=== PATIENT | female | born 1995 | race Caucasian/White ===

== ENCOUNTER 2019-01-17 15:43 | Inpatient (IN) ==
[2019-01-17] MEDS ORDERED: CALCIUM CARBONATE 500 MG (TUMS) CHEWABLE TABLET PO PRN (16:46)
[2019-01-17] MEDS ORDERED: ONDANSETRON 4 MG/2 ML VIAL IVP PRN (16:46)
[2019-01-17] MEDS ORDERED: LIDOCAINE W/ SODIUM BICARB 0.5 ML SYR SUBD PRN (16:46)
[2019-01-17] MEDS ORDERED: NALOXONE 0.4 MG/1 ML VIAL IVP PRN (16:46)
[2019-01-17] MEDS ORDERED: Metoclopramide Inj 10 MG/2 ML VIAL IV PRN (16:46)
[2019-01-17] MEDS ORDERED: CITRIC ACID/SODIUM CITRATE 30 ML CUP PO PRN (16:46)
[2019-01-17] MEDS ORDERED: Phenylephrine Inj 50 MCG in Sodium Chloride 0.9% vial 0.5 ML IVP PRN (16:46)
[2019-01-17] MEDS ORDERED: CefOXitin Inj 2 GM in Sodium Chloride 0.9% 100 ML IV PRN (16:46)
[2019-01-17] MEDS ORDERED: Lidocaine 1% 10 MG/ML - 20 ML VIAL SUBCUT PRN (16:46)
[2019-01-17] MEDS ORDERED: Carboprost Inj 250 MCG/ML AMP IM PRN (16:46)
[2019-01-17] MEDS ORDERED: FAMOTIDINE 20 MG/2 ML VIAL IVP PRN ×2 (16:46)
[2019-01-17] MEDS ORDERED: TERBUTALINE SULFATE 1 MG/1 ML SDV SUBCUT PRN (16:46)
[2019-01-17] MEDS ORDERED: fentaNYL Inj 100 MCG/2 ML VIAL IV PRN (16:46)
[2019-01-17] MEDS ORDERED: ePHEDrine Inj 50 MG/ML AMP IVP PRN (16:46)
[2019-01-17] MEDS ORDERED: LIDOCAINE HCL 2 % 10 ML JELLY URO-JECT TOPICAL PRN (16:46)
[2019-01-17] MEDS ORDERED: METHYLERGONOVINE MALEATE 0.2 MG/1 ML VIAL IM PRN (16:46)
[2019-01-17] MEDS ORDERED: Naloxone Inj 0.01 MG in Sodium Chloride 0.9% vial 1 ML IVP PRN (16:46)
[2019-01-17] MEDS ORDERED: Misoprostol Tab 100 MCG TAB VAGINAL PRN (16:46)
[2019-01-17] MEDS ORDERED: MISOPROSTOL 200 MCG TABLET RECTAL PRN (16:46)
[2019-01-17] MEDS ORDERED: diphenhydrAMINE 50 MG/1 ML VIAL IVP PRN (16:46)
[2019-01-17] MEDS ORDERED: BUTORPHANOL TARTRATE 2 MG/1 ML VIAL IVP PRN (16:46)
[2019-01-17] MEDS ORDERED: Zolpidem Tab 5 MG TAB PO PRN (16:46)
[2019-01-17] MEDS ORDERED: OXYTOCIN 10 UNIT/1 ML IM PRN (16:46)
[2019-01-17] MEDS ORDERED: Nalbuphine Inj 20 MG/ML Ampule IVP PRN (16:46)
[2019-01-17 16:56] LABS: Hematocrit [HCT] 36.4 % (37.0-47.0); Hemoglobin [HGB] 12.3 g/dL (12.0-16.0); MEAN CORPUSCULAR HEMOGLOBIN 29.1 PG (27-31); MEAN CORPUSCULAR HGB CONC 33.8 g/dL (33-37); MEAN CORPUSCULAR VOLUME 86.3 FL (81-99); MEAN PLATELET VOLUME 12.5 FL (7.4-12.2); RED BLOOD COUNT 4.22 10^6/uL (4.20-5.40)
[2019-01-17] MEDS ORDERED: Oxytocin 20 Units + LR 20 UNIT/1,000 ML BAG IV SCH (17:00)
[2019-01-17] MEDS: Lactated Ringers-OB Dept 1,000 ML PRIMARY IV SCH (17:13)
[2019-01-18] MEDS: Misoprostol Tab 100 MCG TAB VAGINAL PRN ×2 (00:14→04:13)
[2019-01-18] MEDS: Lactated Ringers-OB Dept 1,000 ML PRIMARY IV SCH ×2 (04:12→09:51)
[2019-01-18] MEDS ORDERED: Oxytocin 20 Units + LR 20 UNIT/1,000 ML BAG IV SCH ×2 (07:15→18:35)
[2019-01-18] MEDS: Oxytocin 20 Units + LR 20 UNIT/1,000 ML BAG IV SCH (07:22)
[2019-01-18] MEDS ORDERED: Lidocaine/Epi Inj 1.5% 5 ML AMPUL EPIDURAL ONE (08:49)
[2019-01-18] MEDS ORDERED: Fent/Bupiv 2mcg/0.0625% Epid 250 ML ONE (09:03)
--- NOTE | 2019-01-18 09:11 | CRNA.PROCE ---
Central Neuraxis Block Placemt - - Safety Measures: Time Out Taken, Site Verified - - Type of Block: Epidural Reason for Block: Analgesia Moniters Used During Block: SPO2, NIBP Skin Prep Used: ChloroPrep Draped: Yes Skin Infiltration - Enter Amount Used in Comment Field: 1% Xylocaine (mL): Yes (skinwheal) Spinal Needle Used: 18 Hustead 80 mm Local Anesthetic - Enter Amount Used in Comment Field: 1.5 % Xylocaine with Epinephrine 1:200,000 (mL): Yes (5ml) Number of Centimeters Catheter Threaded: 4 Bioclusive Dressing Applied: Yes Anesthesia Time - Other Weight: 83.915 kg Height: 5 ft 6 in Body Mass Index (BMI): 29.8
[2019-01-18] MEDS ORDERED: fentaNYL 2 MCG/BUPIVACAINE 0.0625%/NS 0.9% 250 ML BAG EPIDURAL SCH (09:15)
--- NOTE | 2019-01-18 09:20 | CRNA.PROGR ---
<Muna To - Last Filed: 01/18/19 17:09> Anesthesia Time - Procedure/Recovery Time Anesthesia : Time Out: 17:05 <Juaquin Viera - Last Filed: 01/21/19 08:20> Anesthesia Time - Procedure/Recovery Time Start Date: 01/18/19 End Date: 01/18/19 Anesthesia : Time In: 08:50 - Other Weight: 83.915 kg Height: 5 ft 6 in Body Mass Index (BMI): 29.8 Physical Status: P2 Anesthesia Type: Epidural Obstetrics: Planned vaginal delivery w/ neuraxial labor anesthesia/analog
--- NOTE | 2019-01-18 09:33 | OB.PROGRES ---
Date of Service: 01/18/19 Time of Service: 09:24 Interval History: Pt is a 23 yo at 39 weeks admitted for cervical ripening and induction. She is GBS positive and has received 5 doses of penicillin. She received 2 doses of cytotec overnoc and her contractions are now being augmented with pitocin. Amniotomy was just completed with return of clear fluid. Pt has an epidural in place that is working well. Objective - Cervical Exam Cervical Exam: 4/80/-1/soft [place]: contractions every 2 minutes, palpating moderate to hard. Heart Rate: 145, moderate variability, no decels noted. Heart Rate Interpretation Category: Category I - Labs CBC and BMP: 01/17/19 16:35 - Vital Signs Last Taken Vital Signs: Vital Signs - Last Taken Temperature 97.6 F 01/18/19 06:15 Pulse Rate 64 01/18/19 07:16 Respiratory Rate 12 01/18/19 06:15 Blood Pressure 125/79 01/18/19 06:15 Pulse Ox 97 01/18/19 07:16 Assessment and Plan - Patient Problems (1) Term Current Visit: Yes Status: Acute Code(s): Z34.90 - Encounter for supervision of normal , unspecified, unspecified trimester - Assessment / Plan Additional Assessment/Plan Details: -routine cares. -comfortable with her epidural. -has received multiple doses of PCN for GBS + -AROM completed with return of clear fluid. -anticipate normal vaginal delivery.
--- NOTE | 2019-01-18 15:26 | OB.PROGRES ---
Date of Service: 01/18/19 Time of Service: 15:13 Interval History: Feeling intermittent pressure. Pain is well controlled with epidural. Objective - Cervical Exam Cervical Exam: 8/100/-1 [place]: every 3 minutes, palpating hard. Pitocin has been shut off for recurrent variable decelerations. Heart Rate: basline 145, moderate variability, Variable decelerations to 90 with contractions. Heart Rate Interpretation Category: Category II - Labs CBC and BMP: 01/17/19 16:35 - Vital Signs Last Taken Vital Signs: Vital Signs - Last Taken Temperature 98.1 F 01/18/19 09:16 Pulse Rate 57 L 01/18/19 14:00 Respiratory Rate 16 01/18/19 14:00 Blood Pressure 123/73 01/18/19 14:00 Pulse Ox 99 01/18/19 14:00 Assessment and Plan - Patient Problems (1) Term Current Visit: Yes Status: Acute Code(s): Z34.90 - Encounter for supervision of normal , unspecified, unspecified trimester (2) Variable heart rate decelerations, antepartum Current Visit: Yes Status: Acute Code(s): O36.8390 - Maternal care for abn ormalities of the heart rate or rhythm, unspecified trimester, not applicable or unspecified - Assessment / Plan Additional Assessment/Plan Details: -contractions are actually more regular now that the pitocin is off. Variables are still occurring with most contractions, but they are not dropping down as far as they were before. Intrauterine resuscitative measures have been undertaken--pit off, IV bolus and O2. Anesthesia and RT are aware of the situation. Will continue to closely monitor for now. Hopefully the baby's head will rotate and come down. The nurse noted before that there was significant caput, but now that part of the head is now not directly over the cervix. -GBS + : has received multiple doses of PCN. -epidural working well for pain control. -expectant management.
[2019-01-18] MEDS ORDERED: Sodium Chloride 0.9% 1,000 ML PRIMARY IV ONE (15:44)
[2019-01-18] MEDS ORDERED: diphenhydrAMINE 25 MG CAPSULE PO PRN (18:35)
[2019-01-18] MEDS ORDERED: CALCIUM CARBONATE 500 MG (TUMS) CHEWABLE TABLET PO PRN (18:35)
[2019-01-18] MEDS ORDERED: Nalbuphine Inj 20 MG/ML Ampule IVP PRN (18:35)
[2019-01-18] MEDS ORDERED: ACETAMINOPHEN 325 MG TABLET PO PRN (18:35)
[2019-01-18] MEDS ORDERED: diphenhydrAMINE 50 MG/1 ML VIAL IVP PRN (18:35)
[2019-01-18] MEDS ORDERED: Lidocaine 1% 10 MG/ML - 20 ML VIAL INTRADERM PRN (18:35)
[2019-01-18] MEDS ORDERED: Ondansetron ODT Tab 4 MG TAB PO PRN (18:35)
[2019-01-18] MEDS ORDERED: ONDANSETRON 4 MG/2 ML VIAL IVP PRN (18:35)
[2019-01-18] MEDS ORDERED: LIDOCAINE HCL 2 % 10 ML JELLY URO-JECT TOPICAL PRN (18:35)
[2019-01-18] MEDS ORDERED: LANOLIN HPA 40 GM TUBE TOPICAL PRN (18:35)
[2019-01-18] MEDS ORDERED: BENZOCAINE/MENTHOL SPRAY 56 GM BOTTLE TOPICAL PRN (18:35)
[2019-01-18] MEDS ORDERED: DIPH,PERTUSS,TET(ADACEL) VAC/PF 0.5 ML (Tdap) IM ONE (18:35)
[2019-01-18] MEDS ORDERED: GLYCERIN/WITCH HAZEL 1 BOX TOPICAL PRN (18:35)
[2019-01-18] MEDS ORDERED: HYDROcodone-APAP 5 MG -325 MG TABLET PO PRN (18:35)
[2019-01-18] MEDS: IBUPROFEN 800 MG TABLET PO PRN (19:56)
[2019-01-18] MEDS ORDERED: DOCUSATE 100 MG CAPSULE PO ONE (20:06)
[2019-01-19] MEDS: IBUPROFEN 800 MG TABLET PO PRN ×2 (04:23→16:21)
[2019-01-19 05:31] LABS: Hematocrit [HCT] 34.8 % (37.0-47.0); Hemoglobin [HGB] 11.7 g/dL (12.0-16.0); MEAN CORPUSCULAR HEMOGLOBIN 29.5 PG (27-31); MEAN CORPUSCULAR HGB CONC 33.7 g/dL (33-37); MEAN CORPUSCULAR VOLUME 88 FL (81-99); MEAN PLATELET VOLUME 10.1 FL (7.4-12.2); RED BLOOD COUNT 3.97 10^6/uL (4.20-5.40)
[2019-01-19] MEDS: Oxytocin 20 Units + LR 20 UNIT/1,000 ML BAG IV SCH (06:34)
[2019-01-19] MEDS: Lactated Ringers-OB Dept 1,000 ML PRIMARY IV SCH (06:34)
[2019-01-19 08:30] VITALS: BP 121/73; RESP 16; TEMP 97.8; O2SAT 98
[2019-01-19] MEDS ORDERED: DOCUSATE 100 MG CAPSULE PO SCH (09:00)
[2019-01-19] MEDS ORDERED: Prenatal Multivitamin Tab 1 TAB TAB PO SCH (09:00)
--- NOTE | 2019-01-19 12:24 | OB.PROGRES ---
Subjective Post Day: 1 Pain Management: PO Rudolph Catheter: No Flatus: Yes Lochia Color: Serosa/Brown Scant < 10 ml Diet: Regular Feeding Method: Exculsively Ambulating: Yes Concerns / Additional Information: The patient feels well status post vaginal delivery yesterday. The patient's baby is doing well and was actually discharged by the physician this morning that saw him. The patient would like to leave later this afternoon. Patient feels great. Objective - General General Appearance: POSITIVE: No Acute Distress, Cooperative - Cardiovacular Cardiovascular Exam: POSITIVE: RRR Extremities: Negative Sarahy's - Bilaterally - Respiratory Respiratory Exam: POSITIVE: Clear to Auscultation - Bilaterally Assesstment / Plan Assessment / Plan: Assessment: day #1 status post spontaneous vaginal delivery. The patient is doing well. Very mild anemia with H&H of 11 and 34. Plan: Discharge home later today Usual instructions Usual depression symptoms and signs will be discussed by the nurse Discharge medications: Ibuprofen 800 mg 3 times a day with food or milk as needed Ferrous sulfate 325 mg or 65 mg of elemental iron 1 tablet by mouth daily for 1 month Colace 100 mg capsule 1 capsule by mouth daily to twice a day when necessary constipation I discussed with the patient that all of these are [id number] medications. The patient has Colace at home. She may have ibuprofen at home. The iron may be purchased [id number]-the patient may purchase generic. Pelvic rest to allow for healing for 6 weeks. The patient should follow-up with Dr. Sadler for a 6 week visit. The patient will see Dr. Sadler sooner for baby visits.
--- NOTE | 2019-01-30 14:32 | OB.DEL.SUM ---
Delivery Note Delivery Summary: Pt is a 23 yo at 39 0/7 weeks by 16 week u/s who presented last noc for cervical ripening and induction of labor at term. She is GBS positive and received several doses of penicillin prior to delivery. She received 1 dose of cytotec and then proceeded into labor. Amniotomy was completed around 0920, with return of clear fluid. Pitocin augmentation was started. The pt progressed slowly to 8 cm. Multiple position changes were employed. Baby's head was acynclitic. She began to have repetitive variable decelerations and an IUPC was placed for purposes of monitoring contractions as well as for an amnioinfusion. Despite this, the variable decelerations continued. Finally, baby changed position and pt was complete. She pushed for a very short period of time to the delivery of a viable male infant, over an intact perineum. Time of delivery was 1650. The baby's umbilical cord was noted to present kinked to some degree right by the baby's face. The nose and mouth were suctioned with the bulb suction and the baby was placed on the mom's chest. Cord clamping was delayed x 45 seconds. The cord was doubly clamped by myself and cut by the father of the baby. Cord blood and cord gases were obtained. The placenta delivered spontaneously and intact a short time later. There was a 3 vessel cord. The vagina and perineum were examined and a second degree vaginal laceration was noted and repaired in the normal fashion with 3-0 vicryl rapide suture. No other lacerations were noted. Apgars were 8 at 1 minute and 10 at 5 minutes. Baby weighed 6#6oz and was 19 inches long. EBL 300 cc. Both mom and baby tolerating delivery well and are in stable condition at this time. - Patient Problems (1) Term Status: Acute Code(s): Z34.90 - Encounter for supervision of normal , unspecified, unspecified trimester (2) Variable heart rate decelerations, antepartum Status: Acute Code(s): O36.8390 - Maternal care for abnormalities of the heart rate or rhythm, unspecified trimester, not applicable or unspecified
== END 2019-01-19 18:00 | disposition home or self-care (01) | DRG 807 ==
LOC: OBIP 15:43
PROVIDERS: ADMIT Family Medicine; ATTEND Obstetrics & Gynecology